=== PATIENT | male | born 1960 | race African-American/Black ===

== ENCOUNTER 2024-03-28 06:44 | Emergency (ER) | payer MEDICARE, MEDICAID ==
[~2024-03-28] VITALS: Ht 180.3 cm; Wt 96.0 kg
[2024-03-28 06:51] VITALS: TEMP 98.5; O2SAT 97
[2024-03-28 07:00] VITALS: BP 158/65; PULSE 85; RESP 16
[2024-03-28] MEDS: KETOROLAC 30MG/ML VIAL IM ONE (07:00)
[2024-03-28] MEDS ORDERED: DICL100G58 TP (09:02)
== END 2024-03-28 09:54 | disposition home or self-care (01) ==
LOC: ER 06:44
DX: M17.11 Unilateral primary osteoarthritis, right knee (principal); E11.9 Type 2 diabetes mellitus without complications; I10 Essential (primary) hypertension
CPT/HCPCS: 73562; 96372; 99283